=== PATIENT | female | born 1990 | race Caucasian/White ===

== ENCOUNTER 2017-07-13 17:39 | Emergency (ER) | payer SELFPAY ==
[2017-07-13 17:40] VITALS: BP 142/94; PULSE 116; RESP 15; TEMP 37.3; O2SAT 96; BMI 26.8
--- NOTE | 2017-07-13 19:44 | ED.VISSUMM ---
- ER Visit Summary Date of Service: 07/13/17 Chief Complaint: Sore throat History of Present Illness: The patient is a 26 F who for the past 4 days has had a sore throat. She notes swelling in her neck now. She notes fever. Home treatment has included nothing. No cough no rash. She states that she has been laying in bed. Physical Examination: Afebrile slightly tachycardic 116. Gen: Well-nourished well-developed Head: Normocephalic atraumatic Eyes: Perrl EOMI ENT: TMs clear no rhinorrhea moist mucous membranes left greater than right tonsillar swelling with exudates. There is no retropharyngeal or peritonsillar abscess seen. Uvula is midline. She is handling her secretions normally. Neck: Supple anterior and posterior lymphadenopathy no JVD nontender CVS: Regular rate rhythm no murmurs normal S1-S2 Respiratory: No distress clear to auscultation bilaterally chest nontender Abdomen: Soft nontender nondistended normal bowel sounds no masses Back: Nontender Extremity: Nontender no edema Skin: Normal color no rash Neuro: alert orientated ?3 CN II-XII intact normal strength sensation reflexes gait cerebellar Psych: Normal affect normal mood Test Results: Throat culture was obtained. Emergency Department Course and Treatment: Patient will be treated with a oral dose of Decadron here. I will start her on Pen-Vee K. Impression: 1. Acute tonsillitis This note was generated with [employer] dictation software. It may contain incorrect words, spelling, and punctuation that were not noted in review of the chart prior to signing ED Disposition - Plan for ED Patient: Disposition: Home or Assisted Living Chief Complaint: Sore Throat Instructions: ED Tonsillitis Prescriptions: Penicillin V Potassium 500 mg PO 4X/DAY #40 tab Referrals: Care Physician,No Primary [Primary Care Provider] - Vickie Honeycutt DO [STAFF PHYSICIAN] - 1 Week if not improving
[2017-07-13 19:57] VITALS: BP 117/77; PULSE 86; RESP 17; O2SAT 99
== END 2017-07-13 19:58 | disposition home or self-care (01) ==
PROVIDERS: Emergency Provider Emergency Medicine
DX: J03.90 Acute tonsillitis, unspecified (principal); Z72.0 Tobacco use
CPT/HCPCS: 87070; 99283